=== PATIENT | female | born 1970 | race Caucasian/White ===

== ENCOUNTER 2017-09-15 05:32 | Inpatient (IN) | payer BC ==
[2017-09-03 13:08] VITALS: Ht 160 cm; Wt 62.4 kg
--- NOTE | 2017-09-03 13:37 | PAT Medication Instructions ---
Service Date Sep 03, 2017. Current Home Medication List Biotin (Biotin 5000), 5 MG PO NOON Calcium Carbonate-Vitamin D (Calcium + D), 1 TAB PO NOON Fexofenadine Hcl (Lindsey Allergy), 1 TAB PO QAM Levothyroxine Sodium (Levothyroxine Sodium), 1 TAB PO QAM Olopatadine Hydrochloride (Pataday), 1 DROPS OP DAILY Pantoprazole (Protonix), 20 MG PO QAM Medication Instructions For Your Scheduled Surgery - Hold the following medications the morning of surgery: Fexofenadine Hcl (Lindsey Allergy), 1 TAB PO QAM - Take the following medications the morning of surgery with a sip of water: Levothyroxine Sodium (Levothyroxine Sodium), 1 TAB PO QAM Olopatadine Hydrochloride (Pataday), 1 DROPS OP DAILY (bring with yo to the hospital) Pantoprazole (Protonix), 20 MG PO QAM - Take the following medications as scheduled the afternoon before surgery: Biotin (Biotin 5000), 5 MG PO NOON Calcium Carbonate-Vitamin D (Calcium + D), 1 TAB PO NOON If you have any questions please call us at [phone] or [phone] or [phone]
--- NOTE | 2017-09-03 14:05 | DIAGNOSTIC IMAGING REPORT ---
CHEST 2 VIEWS ROUTINE CLINICAL HISTORY: PAT preoperative evaluation COMPARISON STUDY: No previous studies for comparison. FINDINGS: The bones soft tissues and hemidiaphragms are normal. The cardiomediastinal silhouette is normal. The lungs are clear. The pulmonary vasculature is normal. IMPRESSION: Negative chest. The above report was generated using voice recognition software. It may contain grammatical, syntax or spelling errors. Electronically signed by: Tab Mitchell M.D. 09/03/2017 2:03 PM Dictated Date/Time: 09/03/2017 2:03 PM
[2017-09-03 15:02] LABS: BASO % 0.3 %; BASO ABS # 0.03 K/uL (0-0.2); EOS % 1.9 %; EOS ABS # 0.17 K/uL (0-0.5); HEMATOCRIT 38.1 % (37-47); HEMOGLOBIN 12.9 g/dL (12.0-16.0); IG# 0.02 K/uL (0.00-0.02); LYMPH % 22.9 %; LYMPH ABS # 2.07 K/uL (1.2-3.4); MEAN CELL VOLUME 89.6 fL (80-100); MEAN CORPUSCULAR HEMOGLOBIN 30.4 pg (25-34); MEAN CORPUSCULAR HGB CONC 33.9 g/dl (32-36); MEAN PLATELET VOLUME 10.2 fL (7.4-10.4); MONO % 6.2 %; MONO ABS # 0.56 K/uL (0.11-0.59); NEUT % 68.5 %; PLATELET COUNT 311 K/uL (130-400); RED CELL DISTRIBUTION WIDTH CV 13.3 % (11.5-14.5); WHITE BLOOD COUNT 9.05 K/uL (4.8-10.8)
[2017-09-03 15:11] LABS: CALCIUM 9.3 mg/dl (8.5-10.1); CREATININE 0.75 mg/dl (0.60-1.20)
[~2017-09-15] VITALS: Ht 160 cm; Wt 62.4 kg
[2017-09-15] VITALS (19 sets, daily range): BP systolic 119–146; BP diastolic 70–83; PULSE 60–93; TEMP 36.3–36.9; O2SAT 98–100
[~2017-09-15 05:32] MED LIST: BIOTCAP2 PO; CALC600T9 PO; FEXO1TAB49 PO; LEVO75TA5 PO; PRT/20 PO; PTDOPS OP
[2017-09-15] MEDS ORDERED: CLINDAMYCIN 600 MG/54 ML D5W 54 ML IV SCH (06:00)
[2017-09-15] MEDS ORDERED: CeleBREX 200 MG CAP PO SCH (06:00)
[2017-09-15] MEDS ORDERED: ACETAMINOPHEN 500 MG TAB PO SCH (06:00)
[2017-09-15] MEDS ORDERED: LACTATED RINGER'S 1000ML 1,000 ML IV SCH (06:00)
[2017-09-15] MEDS ORDERED: GABAPENTIN 900 MG PO SCH (06:00)
[2017-09-15] MEDS ORDERED: MIDAZOLAM HCL 1 MG/ML 2ML VIAL ONE (06:44)
[2017-09-15] MEDS ORDERED: FENTANYL CITRATE INJ 50 MCG/1 ML 2 ML VIAL ONE ×3 (06:44→08:06)
[2017-09-15] MEDS ORDERED: BACITRACIN 50000 UNIT VIAL ONE (06:49)
--- NOTE | 2017-09-15 07:35 | History and Physical ---
History & Physical Date Sep 15, 2017. Chief Complaint Neck and arm pain History of Present Illness The patient is a 47 year old female with complaints of neck and arm pain Additional History Hepatic Disease: No Endocrine Disorder: No Kidney Disease: No Hypertension: No Heart Disease: No Bleeding Tendencies: No Infectious Diseases: No Allergies Coded Allergies: Amoxicillin (Verified Allergy, Unknown, RED FLUSH, 09/15/17) Home Medications Scheduled Biotin (Biotin 5000), 5 MG PO NOON Calcium Carbonate-Vitamin D (Calcium + D), 1 TAB PO NOON Fexofenadine Hcl (Lindsey Allergy), 1 TAB PO QAM Levothyroxine Sodium (Levothyroxine Sodium), 1 TAB PO QAM Olopatadine Hydrochloride (Pataday), 1 DROPS OP DAILY Pantoprazole (Protonix), 20 MG PO QAM Physical Examination Skin: warm/dry, no rash Eyes: normal inspection, EOMI, sclerae normal ENT: normal ENT inspection, pharynx normal Head: normocephalic, atraumatic Neck: supple, no adenopathy, trachea midline Respiratory/Chest: lungs clear, normal breath sounds, no respiratory distress Cardiovascular: regular rate, rhythm, no edema, no murmur Abdomen / GI: normal bowel sounds, non tender Back: normal inspection Extremities: normal inspection, normal range of motion Neurologic/Psych: no motor/sensory deficits, alert, normal reflexes, oriented x 3 Diagnosis Cervical spinal stenosis Plan of Treatment C6 corpectomy ACDF C5-C7
--- NOTE | 2017-09-15 07:35 | History & Physical Bridge Note ---
H&P Re-Evaluation Bridge Note: I have examined the patient, reviewed the History & Physical and in the interval since the performance of the History & Physical I have noted the following changes of clinical significance: No changes noted
[2017-09-15] MEDS ORDERED: HYDROmorphone INJ 2 MG/ML SYR/VIAL ONE ×2 (08:06→09:02)
[2017-09-15] MEDS ORDERED: FLOSEAL HEMOSTATIC MATRIX 10ML TOP ONE (08:12)
[2017-09-15] MEDS ORDERED: METOCLOPRAMIDE HCL INJ 5 MG/ML 2 ML VIAL ONE (09:02)
[2017-09-15] MEDS ORDERED: PROPOFOL IV EMULSION 10 MG/ML 20 ML VIAL IV ONE (09:02)
[2017-09-15] MEDS ORDERED: DEXAMETHASONE SOD INJ 4 MG/ML VIAL ONE (09:02)
[2017-09-15] MEDS ORDERED: LIDOCAINE HCL 2% 2 ML VIAL (20MG/ML) ONE (09:02)
[2017-09-15] MEDS ORDERED: ONDANSETRON INJ 2 MG/ML 2 ML VIAL ONE (09:02)
[2017-09-15] MEDS ORDERED: RANITIDINE HCL 25 MG/ML INJ ONE (09:02)
[2017-09-15] MEDS ORDERED: GLYCOPYRROLATE INJ 0.2 MG/ML VIAL ONE (09:04)
[2017-09-15] MEDS ORDERED: NEOSTIGMINE METHYLSULFATE 1 MG/ML 10ML VIAL ONE (09:04)
--- NOTE | 2017-09-15 09:09 | [facility] Operative Report ---
Operative Report Operative Date Sep 15, 2017. Pre-Operative Diagnosis SPINAL STENOSIS Post-Operative Diagnosis Same as preop Procedure(s) Performed 1. Anterior cervical corpectomy C6. #2 anterior cervical arthrodesis C5-C7. #3 placement of peek cage 23 mm in height C5-C7. #4 placement of locally harvested morselized autograft combined with DBM and interbody cage. #5 application of 5 complete and screws from C5-C7. Surgeon DR. GONZALEZ Chairman [employer] Founder Surgeon(s) Tawanna GANNON PAC Estimated Blood Loss 10ml Findings Severe spinal stenosis Specimens NONE Anesthesia Type General Description of Procedure Patient was met with preoperatively case discussed all questions addressed. After informed consent obtained patient was taken to the operative suite underwent intubation and placed in supine position the James table with the head Palacio head pastry chef. All bony prominences were well-padded eyes inspected to ensure no external pressure placed upon them. This point the anterior cervical spine was prepped and draped in the normal sterile fashion. With the assistance of fluoroscopy identified the C6 vertebral body and a transverse incision was placed along the right anterior aspect of the cervical spine overlying this region. Sharp dissection with the assistance of bipolar electrocautery was performed down to and exposing the anterior cervical spine from C5-C7. Self-retaining retractors placed. I then performed a complete discectomy of C5-6 up to the uncovertebral joints bilaterally followed by C6-7. [place] distracting pins were then placed in C5 and C7 to distract across the C6 vertebral body. A complete corpectomy of C6 was then performed including removal of all posterior annular fibers longitudinal ligament and bilateral foraminotomies. The endplates were then burred to subcortical bleeding bone and a 23 mm peek cage filled with locally harvested morselized autograft and DBM tapped into position. Distraction apparatus was removed. The 5 complete and screws applied with the assistance of fluoroscopy. Incision was then copiously irrigated explored to ensure there is no damage to surrounding structures or remaining bleeding. 10 round YONATHAN drain inserted. Incision closed with 2 Vicryl fascia 4-0 Monocryl for fashion closure Steri-Strips sterile dressings placed. Patient will continue to PACU stable condition. Please note Galilea Shankar was present throughout the entire procedure involved in patient positioning complex portions of the surgery and fashion closure. I attest to the content of the Intraoperative Record and any orders documented therein. Any exceptions are noted below.
[2017-09-15] MEDS ORDERED: ROCURONIUM BROMIDE 10 MG/ML 5 ML VIAL IV ONE (09:14)
[2017-09-15] MEDS ORDERED: EpHEDrine SULFATE INJ 50 MG/ML AMP IV PRN (09:15)
[2017-09-15] MEDS ORDERED: RACEPINEPHRINE 2.25% NEBU SOLN 0.5 ML VIAL INH PRN (09:15)
[2017-09-15] MEDS ORDERED: DEXAMETHASONE INJ 8 MG in SYRINGE 0 ML IV PRN (09:15)
[2017-09-15] MEDS ORDERED: LABETALOL HCL IV 5 MG/ML 20ML IV PRN (09:15)
[2017-09-15] MEDS ORDERED: ACETAMINOPHEN IV 1,000 MG in EMPTY BAG 0 ML IV PRN (09:15)
[2017-09-15] MEDS ORDERED: HYDROmorphone INJ 0.5 MG/0.5 ML SYR IV PRN ×2 (09:15)
[2017-09-15] MEDS ORDERED: MAGNESIUM HYDROXIDE SUSP 30 ML UDC PO PRN (09:15)
[2017-09-15] MEDS ORDERED: DO NOT ADMINISTER FLU VACCINE PRN (09:15)
[2017-09-15] MEDS ORDERED: LORAZEPAM 0.5 MG TAB PO PRN (09:15)
[2017-09-15] MEDS ORDERED: DiphenhydrAMINE HCL 50 MG/ML VIAL IV PRN (09:15)
[2017-09-15] MEDS ORDERED: LORAZEPAM INJ 0.5 MG in SYRINGE 0.75 ML IV PRN (09:15)
[2017-09-15] MEDS ORDERED: DO NOT ADMINISTER PNEUMOCOCCAL VACCINE PRN (09:15)
[2017-09-15] MEDS ORDERED: MEPERIDINE HCL 25 MG/ML CARP IV PRN (09:15)
[2017-09-15] MEDS ORDERED: NALOXONE HCL 0.4 MG/1 ML VIAL/CARP IV PRN (09:15)
[2017-09-15] MEDS ORDERED: ATROPINE SULFATE 0.1 MG/ML 5ML SYR IV PRN (09:15)
[2017-09-15] MEDS ORDERED: FENTANYL CITRATE INJ 50 MCG/1 ML 2 ML VIAL IV PRN (09:15)
[2017-09-15] MEDS ORDERED: ONDANSETRON INJ 2 MG/ML 2 ML VIAL IV PRN ×2 (09:15)
--- NOTE | 2017-09-15 10:47 | Anesthesiology Progress Note ---
Anesthesia Post Op Note Date & Time Sep 15, 2017 at 10:47 Vital Signs Pain Intensity: 2 Vital Signs Past 12 Hours Date Time Temp Pulse Resp B/P (MAP) Pulse Ox O2 Delivery O2 Flow Rate FiO2 09/15/17 10:23 36.2 63 16 138/76 100 Nasal Cannula 4 09/15/17 10:13 55 16 139/73 100 Nasal Cannula 4 09/15/17 10:00 61 16 133/74 100 Nasal Cannula 4 09/15/17 09:50 36.4 73 16 129/76 100 Nasal Cannula 4 09/15/17 09:40 62 16 133/73 100 Oxymask 15 09/15/17 09:30 75 16 128/76 100 Oxymask 15 09/15/17 09:20 36.2 123 16 141/81 100 Oxymask 15 09/15/17 06:37 98 Room Air 09/15/17 06:35 36.7 65 16 146/81 Notes Mental Status: alert / awake / arousable, participated in evaluation Pt Amnestic to Procedure: Yes Nausea / Vomiting: adequately controlled Pain: adequately controlled Airway Patency, RR, SpO2: stable & adequate BP & HR: stable & adequate Hydration State: stable & adequate Anesthetic Complications: no major complications apparent
--- NOTE | 2017-09-15 11:26 | DIAGNOSTIC IMAGING REPORT ---
INTRAOPERATIVE CERVICAL SPINE 2 VIEWS CLINICAL HISTORY: ACDF C5-7 C6 CORPECTOMY COMPARISON STUDY: No previous studies for comparison. FINDINGS: 12 seconds of fluoroscopic time was utilized. 2 intraoperative fluoroscopic spot films are provided for interpretation. There are postsurgical changes of a C6 corpectomy. There is an anterior spinal fusion with screws present at the C5 and C7 levels. An endotracheal tube is visualized. IMPRESSION: Postsurgical changes of a C6 corpectomy with anterior cervical fusion at the C5-C7 level. Electronically signed by: Stevan Aburto M.D. 09/15/2017 11:24 AM Dictated Date/Time: 09/15/2017 11:23 AM
[2017-09-15] MEDS ORDERED: NURSING VERBAL MED ORDER ONE ×2 (11:45→20:45)
[2017-09-15] MEDS ORDERED: RXC5 PO (13:47)
--- NOTE | 2017-09-15 13:47 | Discharge Instructions ---
Discharge Instructions Date of Service Sep 15, 2017. Admission Reason for Admission: Spinal Stenosis Discharge Discharge Diagnosis / Problem: cervical stenosis Discharge Goals Goal(s): Improve function Activity Recommendations Activity Limitations: per Instructions/Follow-up section . Instructions / Follow-Up Instructions / Follow-Up ACTIVITY RECOMMENDATIONS: SELF CARE INSTRUCTIONS AFTER CERVICAL FUSIONS 1. No smoking. Smoking drastically decreases the chance of a solid fusion. 2. No bending, lifting more than 5 pounds, or twisting (roll like a log when turning in bed). 3. You may shower 3 days after surgery. Thoroughly dry wound. Do not soak in the tub. 4. Cervical collar: Must be worn at all times including sleeping. You may remove the brace only to bath, eat and if you are sitting in a recliner. 5. Please walk as much as you can for exercise. Gradually increase the distance that you walk as your endurance increases. SPECIAL CARE INSTRUCTIONS: VERY IMPORTANT TO READ AND REVIEW A. Do not take any anti-inflammatory medications (i.e. Indocin, Advil, Aspirin, Naprosyn, Aleve, Motrin, etc.) as these may inhibit the chance of a solid fusion. Tylenol is okay to take. B. Your surgical incision has been closed with a cosmetic suture under the skin that will dissolve in about 6 weeks. In 14 days, you can use a pair of clean scissors and cut the suture that is left outside of the skin at the ends of your incision. C. Complications are uncommon, but please contact us if you have any signs or symptoms of: 1. wound infection (fever higher than 102.5 degrees F, redness, separation of wound, drainage, or increasing pain from the incision) 2. blood clots in legs (pain, swelling, redness and warmth in legs) 3. urinary tract infection (fever higher than 102.5 degrees, burning upon urination or increased frequency of urination) 4. nerve problems (inability to walk on your toes or heels, numbness, loss of bowel or bladder control) 5. any other symptoms that concern you. D. Please call the office at if you have any concerns or questions about your operation or recovery. MANAGING PAIN AFTER SPINAL SURGERY 1. Narcotic medication is intended for short-term use and will be provided for surgical pain. Surgical pain usually lasts for a period of 4-6 weeks. Narcotic medication includes Percocet, Vicodin, Darvocet, Tylenol #3 or Lortab. 2. Longer-term pain is more appropriately treated with non-narcotic medication such as Tylenol ES. 3. Muscle spasm is not appropriately treated with narcotics. Muscle relaxers such as Soma, Flexeril or Skelaxin can be used along with Tylenol ES. 4. Remember that we all live with some "aches and pains". This is not unusual or uncommon after an injury or as we get older. 5. We will provide appropriate medication within the normal guidelines of their prescribed use. We will also be very cautious and aware of potential abuse and extended duration of patients' medication needs. 6. Please allow 2-3 days to process refills. Prescriptions will not be mailed but must be picked up at the office. FOLLOW UP VISIT: Keep your scheduled follow-up appointment. Any questions, please call the office at . Current Hospital Diet Patient's current hospital diet: Clear Liquid Diet Discharge Diet Recommended Diet: Regular Diet Procedures Procedures Performed: 1. Anterior cervical corpectomy C6. #2 anterior cervical arthrodesis C5-C7. #3 placement of peek cage 23 mm in height C5-C7. #4 placement of locally harvested morselized autograft combined with DBM and interbody cage. #5 application of 5 complete and screws from C5-C7. Pending Studies Studies pending at discharge: no Medical Emergencies . Who to Call and When: Medical Emergencies: If at any time you feel your situation is an emergency, please call 911 immediately. . Non-Emergent Contact Non-Emergency issues call your: Primary Care Provider . "Provider Documentation" section prepared by Rocco Garcia. .
[2017-09-15] MEDS: SODIUM CHLORIDE 0.9% 1000ML 1,000 ML IV SCH (13:49)
[2017-09-15] MEDS: CHECK SCOPOLAMINE PATCH PLACEMENT SCH (15:51)
[2017-09-15] MEDS ORDERED: SCOPOLAMINE 1.5 MG TDSY TD SCH (16:00)
[2017-09-15] MEDS: CLINDAMYCIN IV 600 MG in DEXTROSE 5% 50ML 50 ML IV SCH (18:34)
[2017-09-15] MEDS: DOCUSATE SODIUM 100 MG CAP PO SCH (20:39)
[2017-09-16] VITALS (12 sets, daily range): BP systolic 114–142; BP diastolic 67–82; PULSE 53–73; TEMP 36.5–37.1; O2SAT 96–100
[2017-09-16] MEDS: SODIUM CHLORIDE 0.9% 1000ML 1,000 ML IV SCH (01:02)
[2017-09-16] MEDS: CLINDAMYCIN IV 600 MG in DEXTROSE 5% 50ML 50 ML IV SCH ×2 (01:40→09:56)
[2017-09-16] MEDS: OXYCODONE HCL IR 5 MG TAB (IMMEDIATE RELEASE) PO PRN ×2 (05:14→11:49)
[2017-09-16] MEDS ORDERED: LEVOTHYROXINE 75 MCG TAB PO SCH (06:00)
[2017-09-16] MEDS: CHECK SCOPOLAMINE PATCH PLACEMENT SCH ×2 (08:00)
[2017-09-16] MEDS: DOCUSATE SODIUM 100 MG CAP PO SCH (08:51)
--- NOTE | 2017-09-16 08:51 | Anesthesiology Progress Note ---
Anesthesia Post Op Note Date & Time Sep 16, 2017 at 08:50 Vital Signs Pain Intensity: 4.0 Vital Signs Past 12 Hours Date Time Temp Pulse Resp B/P (MAP) Pulse Ox O2 Delivery O2 Flow Rate FiO2 09/16/17 07:45 36.6 62 16 142/82 96 Room Air 09/16/17 07:39 58 14 100 Room Air 09/16/17 07:12 36.7 53 16 131/77 (95) 100 Room Air 09/16/17 05:43 36.5 73 16 127/78 100 Room Air 09/16/17 03:45 36.9 60 16 117/68 98 Room Air 09/16/17 03:19 61 14 97 Room Air 09/16/17 01:45 37.1 63 16 114/67 96 Room Air 09/16/17 00:15 72 16 98 Room Air 09/15/17 23:41 36.8 65 16 125/77 100 Room Air 09/15/17 23:41 Room Air 09/15/17 21:47 36.8 83 16 136/77 (96) 99 Room Air Notes Mental Status: alert / awake / arousable, participated in evaluation Pt Amnestic to Procedure: Yes Nausea / Vomiting: adequately controlled, see Notes Pain: adequately controlled Airway Patency, RR, SpO2: stable & adequate BP & HR: stable & adequate Hydration State: stable & adequate Anesthetic Complications: no major complications apparent patient reported having nausea yesterday afternoon without vomiting. She said she received IV nausea medication as well as a scopolamine patch behind ear. Patient given education on side effects and proper disposal handling of the patch. patient did report feeling very dry and has been drinking a lot of fluids. Patient told she can have RN take patch off whenever she desires or feels too dry. Patient verbalized understanding of teaching.
[2017-09-16] MEDS ORDERED: FEXOFENADINE HCL 180 MG TAB PO SCH (09:00)
[2017-09-16] MEDS ORDERED: PANTOprazole SOD 40 MG TAB PO SCH (09:00)
--- NOTE | 2017-09-16 10:28 | Discharge Summary ---
Orthopedic Discharge Summary Admission Date/Reason Sep 15, 2017 at 06:30 Spinal Stenosis. Discharge Date/Disposition Sep 16, 2017 Home Diagnosis Principal Diagnosis: Cervical spinal stenosis Admission Physical Exam As per Admitting History & Physical. Hospital Course Patient underwent anterior cervical corpectomy tolerated this well was taken to the orthopedic floor postoperatively. Postop day #1 she was swallowing well. No hoarseness. Arm symptoms markedly improved. YONATHAN drain decreasing appropriately. Subsequently she was discharged home. Discharge orders and instructions can be found on the chart for further review. Discharge Instructions Please refer to the electronic Patient Visit Report (Discharge Instructions) for additional information.
[2017-09-16] MEDS ORDERED: NURSING VERBAL MED ORDER ONE (11:00)
[2017-09-17] MEDS ORDERED: BISACODYL 10 MG SUPP PR PRN (06:00)
[2017-09-17] MEDS ORDERED: BISACODYL 5 MG TABEC PO PRN (06:00)
[2017-09-17] MEDS ORDERED: POLYETHYLENE (MIRALAX) 17 GM PACK PO SCH (09:00)
== END 2017-09-16 14:33 | disposition home or self-care (01) | DRG 473 ==
LOC: C.ACU 05:32 → C.3E 06:30 → ENRESERV 10:08
PROVIDERS: ADMIT Orthopaedic Surgery Orthopaedic Surgery of the Spine; ATTEND Orthopaedic Surgery Orthopaedic Surgery of the Spine
PROC: 0RT30ZZ Resection of Cervical Vertebral Disc, Open Approach (ICD-10-PCS; principal; 2017-09-15 07:45)
PROC: 0RG20A0 Fusion of 2 or more Cervical Vertebral Joints with Interbody Fusion Device, Anterior Approach, Anterior Column, Open Approach (ICD-10-PCS; principal; 2017-09-15 07:45)
DX: M48.02 Spinal stenosis, cervical region (principal); Z88.1 Allergy status to other antibiotic agents